=== PATIENT | male | born 1965 | race Caucasian/White ===

== ENCOUNTER 2024-09-11 23:24 | Emergency (ER) | payer OTHER, SELFPAY ==
--- NOTE | ~2024-09-11 | XR_ITS ---
EXAMINATION: XR CHEST CLINICAL INFORMATION: CPR. COMPARISON: None available. TECHNIQUE: Frontal view of the chest was obtained. FINDINGS: Endotracheal tube tip is above the ashley. Lungs grossly clear given AP portable technique. Heart and pulmonary vessels normal given poor inspiratory effort. XR/XR chest 1V IMPRESSION: No active disease. Electronically signed by: Tre Villanueva MD 09/14/2024 04:30 PM EDT RP
--- NOTE | ~2024-09-11 | XR_ITS ---
EXAMINATION: XR CHEST CLINICAL INFORMATION: Respiratory failure. COMPARISON: None available. TECHNIQUE: Frontal view of the chest was obtained. FINDINGS: The lung volumes are significantly low. The cardiomediastinal silhouette is grossly within normal limits. There is an endotracheal tube seen approximately 1.3 cm above the ashley. A gastric tube extends below the diaphragm into the upper abdomen with side port at or just above the level of the gastroesophageal junction. There are faint bilateral lower lung field opacities. There are no definitive significant pleural effusions. The bony structures and the soft tissues are unremarkable. XR/XR chest 1V IMPRESSION: The endotracheal tube is seen approximately 1.3 cm above the ashley. The gastric tube extends below the diaphragm into the upper abdomen with the side port at or just above the level of the gastroesophageal junction. Consider advancing another 7 to 10 cm. There are faint bilateral lower lung field opacities possibly atelectasis or infiltrates.. Electronically signed by: Richard Shukla MD 09/12/2024 01:47 AM EDT
[2024-09-11 23:27] VITALS: BMI 33.3
[2024-09-12 00:08] LABS: Hematocrit 45.8 % (42.0-52.0); Hemoglobin 14.5 g/dl (14.0-18.0); Mean Corpuscular HGB Conc 31.7 g/dl (31.0-36.0); Mean Corpuscular Hemoglobin 32.4 pg (27.0-33.0); Mean Corpuscular Volume 102.2 fL (80.0-98.0); Red Blood Count 4.48 X10*6/uL (4.60-5.80); White Blood Count 5.7 X10*3/uL (4.8-10.8)
[2024-09-12 00:09] LABS: Basophils Percent Auto 0.4 % (0-2); Eosinophils Absolute Auto 0.1 X10*3/uL (0.0-0.4); Eosinophils Percent Auto 2.3 % (0-4); Imm Gran Abs Auto 0.09 X10*3/uL (0.00-0.03); Imm Gran Pct Auto 1.6 % (0.0-0.4); Lymphocytes Absolute Auto 4.9 X10*3/uL (1.2-4.9); Lymphocytes Percent Auto 85.6 % (20-40); MANUAL DIFF FLAG SCAN; Mean Platelet Volume 10.6 fL (9.4-12.4); Monocytes Absolute Auto 0.3 X10*3/uL (0.1-1.2); Monocytes Percent Auto 5.1 % (2-11); NRBC Pct Auto 0.4 /100WBC (0.0-0.2); Neutrophils Absolute Auto 0.3 x10*3/uL (2.0-8.3); Red Cell Distribution Width 12.3 % (11.0-16.0); SCAN SMEAR FLAG 1
--- NOTE | 2024-09-12 00:13 | ED_ITS ---
HPI - CPR General Chief Complaint: Cardiac Arrest/CPR Stated Complaint: CARDIAC ARREST Time Seen by Provider: 09/11/24 23:48 History of Present Illness HPI narrative: 58 years old with history of diabetes coronary artery disease status post stent placed 2020 history of hypertension high cholesterol history of substance abuse in the past was with his having intercourse at 22:30 when suddenly patient has become pale started having chest pain and became unconscious had small seizure like activity with eyes uprolled became incontinent EMS reached at 22:49 1st rhythm was shockable rhythm and shock was given, CPR started I gel was placed multiple rounds of epi were given on arrival patient was with PEA CPR continued. In the ER patient intubated and multiple doses epi were given had a short run of VFib and shock was given ROSC achieved started on Levophed and phenylephrine drip also amiodarone 300 mg was given 1 ampule of bicarb and 2 g of magnesium was also given EKG showed ST elevation inferior lead with ST depression in anterior leads patient does have history of cocaine abuse with a according to has not used cocaine for a while Related Data Allergies Allergy/AdvReac Type Severity Reaction Status Date / Time iodine Allergy Unknown rash Unverified 09/12/24 00:37 niacin Allergy Unknown rash Unverified 09/12/24 00:37 Unable to Assess Allergy Unverified 09/12/24 00:37 Review of Systems 2 Review of Systems: Yes all other systems are reviewed and are negative [facility] Past Medical History Medical History (Updated 09/12/24 @ 01:09 by Johnnie Shaw MD) Cocaine abuse High cholesterol Diabetes mellitus HTN (hypertension) Surgical History (Updated 09/12/24 @ 00:57 by Janell Gallagher) Stented coronary artery Social History Social History Advance Directives: No Advance Directives Information Provided: No Physical Exam 2 Vital Signs: Vital Signs: Last Vital Signs Temp 94.6 F L 09/12/24 02:15 Pulse 0 L 09/12/24 02:15 Resp 18 09/12/24 02:15 BP 0/0 L 09/12/24 02:15 O2 Del Method Mechanical Ventil ation 09/12/24 02:15 FiO2 100 09/12/24 00:58 BMI result Body Mass Index 33.3 Appearance: Unresponsive on Ambu CPR warm body Eyes: Fixed dilated ENT: Pharynx normal. Oral Mucosa moist Neck: Normal inspection. Neck supple. CVS: Pulse palpable with CPR Respiratory: Equal air entry bilateral Abdomen: Soft Skin: Skin warm and dry. Normal skin color. Normal skin turgor. Extremities: No lower extremity edema. Medications Administered Discontinued Medications Generic Name Dose Route Start Last Admin Trade Name Freq PRN Reason Stop Dose Admin Aspirin 300 mg 09/12/24 00:27 09/12/24 01:15 Aspirin 300 Mg Supp.Rect GA 09/12/24 00:28 300 mg ONCE ONE Administration Heparin Sodium/Sodium Chloride 25,000 unit in 250 mls @ 0 mls/hr 09/12/24 00:30 09/12/24 01:07 Heparin Sodium,Porcine/1/2ns IVCONT 10.37 units/kg/hr .Q0M DOTTIE 10 mls/hr Administration Protocol Per Protocol Insulin Human Regular 16 unit 09/12/24 01:06 09/12/24 01:13 Insulin Regular, Human 100 Unit/Ml 10 Ml Vial IVPUSH 09/12/24 01:07 16 unit ONCE ONE Administration Medical Decision Making Medical Decision Making MDM Narrative: Patient's cardiac history post stent placed 2020 came here after intercourse ROSC after CPR continued for more than 45 minute currently patient is on phenylephrine Levophed drip EKG showed ST elevation inferior leads and significant ST depression anterior leads case discussed with intervention right of way cutter Dr. Rogers at [facility] accepted the patient to go to ICU patient is started on heparin drip aspirin was given per rectum amiodarone 300 mg was given 0130 EMS your critical team to take to the [facility] blood pressure 89/34 saturating 84% Lab Data [facility] Lab Attestation statement: I reviewed the patient's lab results. 09/11/24 23:30 09/11/24 23:30 Labs: Lab Results 09/11/24 09/12/24 Range/Units 23:30 01:06 WBC 5.7 (4.8-10.8) X10*3/uL RBC 4.48 L (4.60-5.80) X10*6/uL Hgb 14.5 D (14.0-18.0) g/dl Hct 45.8 D (42.0-52.0) % MCV 102.2 H (80.0-98.0) fL MCH 32.4 (27.0-33.0) pg MCHC 31.7 (31.0-36.0) g/dl RDW 12.3 (11.0-16.0) % Plt Count TNP MPV 10.6 (9.4-12.4) fL Immature Gran % (Auto) 1.6 H (0.0-0.4) % Neut % (Auto) 5.0 L (45-73) % Lymph % (Auto) 85.6 H (20-40) % [place] % (Auto) 5.1 (2-11) % Eos % (Auto) 2.3 (0-4) % Baso % (Auto) 0.4 (0-2) % Lymph # (Auto) 4.9 (1.2-4.9) X10*3/uL [place] # (Auto) 0.3 (0.1-1.2) X10*3/uL Eos # (Auto) 0.1 (0.0-0.4) X10*3/uL Baso # (Auto) 0.0 (0.0-0.2) X10*3/uL Abs Immat Gran (auto) 0.09 H (0.00-0.03) X10*3/uL Absolute Neuts (auto) 0.3 L (2.0-8.3) x10*3/uL Absolute Nucleated RBC 0.020 H (0.0-0.012) X10*3/uL Nucleated RBC % (auto) 0.4 H (0.0-0.2) /100WBC Smear Tech's Comments VERIFIED PT 12.0 (10.9-12.4) SEC INR 1.0 (0.9-1.1) Sodium 144 (135-145) mmol/L Potassium 3.7 (3.3-5.1) mmol/L Chloride 105 (96-108) mmol/L Carbon Dioxide 15 L (22-29) mmol/L Anion Gap 28 H (12-20) BUN 16 (9-16) mg/dL Creatinine 1.60 H (0.5-1.4) mg/dL Estim Creat Clear Calc TNP Estimated GFR 45 POC Glucose 559 H* (60-115) mg/dL Random Glucose 510 H* (60-115) mg/dL Lactic Acid 12.4 H* (0.5-2.0) mmol/L Calcium 8.8 (8.4-10.2) mg/dL Magnesium 2.6 (1.6-2.6) mg/dL Total Bilirubin 0.3 (0.0-1.0) mg/dL Direct Bilirubin 0.1 (0.0-0.5) mg/dL AST 553 H (5-37) U/L ALT 408 H (0-40) U/L Alkaline Phosphatase 104 (39-117) U/L Troponin I High Sens 102.1 H* D (<3.5-35.0) ng/L B-Natriuretic Peptide 40 (<100) pg/mL Total Protein 6.2 L (6.5-8.0) g/dL Albumin 3.6 (3.5-5.0) g/dL Ethyl Alcohol < 10 mg/dL Independent Interpretation I performed an independent interpretation of an: EKG Interpretation: Junctional rhythm with ST-elevation inferior leads and ST depression in anterior leads heart rate 54 beats per minute Procedures Intubation Intubation Type:: Endotracheal Tube Insertion Intubation Date:: 09/11/02 Intubation Time:: 23:30 Time out performed: No sedative: none Laryngoscope: fiber optic video scope Assist Device Used: fiber optic device ET Tube Size: 7.5 ET Tube Uncuffed: No Tube Secured Depth (cm): 24 Tube Secured Location: lips Tube Placement Confirmation: visualized tube passing through cords, equal breath sounds bilaterally, no breath sounds over epigastrium and confirmation by capnometry Patient Tolerated Procedure: no complications Intubation Complications: none Critical Care Time Critical Care Time Critical Care Time: Yes Total Critical Care Time: 65 Attestation: The patient was critically ill with a high probability of imminent or life threatening deterioration. I spent greater than 70??minutes of discontinuous time evaluating the patient,delivering critical care at the bedside, discussing and evaluating pertinent data with consultants. Critical care time does not include time spent performing separately billable procedures or teaching. Total time spent performing critical care was 65???minutes. Discharge Plan Discharge Clinical Impression: Cardiac arrest, ST elevation (STEMI) myocardial infarction Patient Disposition: [facility] Transfer Details: [facility] cardiac unit Dr. Borja Interventions: Acute Care Transfer Worksheet (ED) Last Done: 09/12/24 02:15 Discharge Date/Time: 09/12/24 02:56 Print Language: Lao
[2024-09-12 00:17] LABS: SLIDE REVIEW VERIFIED
[2024-09-12 00:20] LABS: B Type Natriuretic Peptide 40 pg/mL (<100)
[2024-09-12 00:25] LABS: Alanine Aminotransferase 408 U/L (0-40); Albumin Level 3.6 g/dL (3.5-5.0); Alkaline Phosphatase 104 U/L (39-117); Anion Gap 28 (12-20); Aspartate Amino Transferase 553 U/L (5-37); Bilirubin Direct 0.1 mg/dL (0.0-0.5); Bilirubin Total 0.3 mg/dL (0.0-1.0); Blood Urea Nitrogen 16 mg/dL (9-16); Calcium 8.8 mg/dL (8.4-10.2); Carbon Dioxide 15 mmol/L (22-29); Chloride 105 mmol/L (96-108); Estimated Glomerular Filt Rate 45; Ethanol < 10 mg/dL; Glucose Random 510 mg/dL (60-115); Magnesium 2.6 mg/dL (1.6-2.6); Potassium 3.7 mmol/L (3.3-5.1); Sodium 144 mmol/L (135-145); Total Protein 6.2 g/dL (6.5-8.0)
[2024-09-12 00:26] LABS: Lactic Acid 12.4 mmol/L (0.5-2.0); Troponin-I High Sensitivity 102.1 ng/L (<3.5-35.0)
--- NOTE | 2024-09-12 00:38 | PC.NURSE ---
Patient arrival in cardiac arrest to [facility] at 2327 with approximately 20 mins downtime prior to arrival. Prior to arrival patient received 3 epinephrine and one shock. POC on arrival was 329. Patient was in PEA on arrival with EPInephrine administered. 7 of epinephrine administered along with 50mg TNK, sodium bicarbonate, amiodarone, Levophed, vasopressin (started and stopped) and phenylephrine started,. Patient was shocked with 120j x1 @ 2337 and then cpr was resumed. ET tube 7.5, 24 @ lip. 3 Liters of fluid administered.
[2024-09-12 00:58] VITALS: PULSE 81; O2SAT 93
[2024-09-12] MEDS: Heparin Sodium,Porcine/1/2NS 25,000 UNIT/250 ML IV.SOLN 10 UNIT IVCONT (01:07)
[2024-09-12 01:10] LABS: Glucose, Whole Blood 559 mg/dL (60-115)
[2024-09-12] MEDS: Insulin Regular, Human 100 UNIT/ML 10 ML VIAL 16 UNIT IVPUSH (01:13)
[2024-09-12] MEDS: Aspirin 300 MG SUPP.RECT PR (01:15)
[2024-09-12 01:53] LABS: Reflex Lactate? Lactic Acid Added
[2024-09-12 02:15] VITALS: BP 0/0; PULSE 0; RESP 18; TEMP 34.8
[2024-09-14 08:35] LABS: Glucose, Whole Blood 329 mg/dL (60-115)
== END 2024-09-12 02:56 | disposition short-term general hospital (02) ==
PROVIDERS: Emergency Medicine; Emergency Provider Internal Medicine
DX: I46.9 Cardiac arrest, cause unspecified (principal); I21.3 ST elevation (STEMI) myocardial infarction of unspecified site; R06.02 Shortness of breath; I10 Essential (primary) hypertension; I25.10 Atherosclerotic heart disease of native coronary artery without angina pectoris; E11.9 Type 2 diabetes mellitus without complications; R07.89 Other chest pain; F14.10 Cocaine abuse, uncomplicated; Z79.899 Other long term (current) drug therapy; Z79.4 Long term (current) use of insulin
CPT/HCPCS: 31500; 36415; 71045; 80048; 80076; 80307; 82947; 83605; 83735; 83880; 84484; 85025; 85610; 94002; 96361; 96365; 96367; 96375; 99285; 99291; J0171; J0282; J1644; J3475